=== PATIENT | male | born 1960 | race Hispanic/Latino ===

== ENCOUNTER 2020-08-21 14:25 | Emergency (ER) | payer MEDICAID ==
[2020-08-21] MEDS ORDERED: TETANUS,DIPH,PERTUSS(ACELL) VACCINE 0.5 ML SYRINGE IM ONE (15:01)
--- NOTE | 2020-08-21 15:06 | Emergency Department Report ---
HPI - General Chief Complaint: Altered Mental Status Time Seen by Provider: 08/21/20 15:00 - HPI HPI: Room 17 The patient is a 60-year-old male present with a chief complaint of fall. Patient was reportedly found on the ground after he had fallen and struck his face at a gas station. EMS was called and placed the patient in a cervical collar. Patient has obvious abrasions to the face. Patient denies complaints and states he is ready to go home. The patient states he was at a gas station and noticed that his shoe was untied so he bent over to tie it and that is when he fell ED Past Medical Hx - Past Medical History Hx Hypertension: Yes Hx CVA: Yes Hx Diabetes: Yes Hx HIV: Yes Additional medical history: Stroke in 2013 - Surgical History Additional Surgical History: Toe amputation - Family History Family history: no significant - Social History Smoking Status: Unknown if ever smoked Substance Use Type: None - Medications Home Medications: Home Medications Medication Instructions Recorded Confirmed Last Taken Type Dolutegravir [Tivicay] 50 mg PO DAILY 08/02/19 08/02/19 Unknown History Doxycycline Monohydrate 100 mg PO BID 08/02/19 08/02/19 Unknown History [Doxycycline Monohydrate CAP] Emtricitabine/Tenofov Alafenam 200 mg PO DAILY 08/02/19 08/02/19 Unknown History [Descovy 200-25 mg Tablet] Gabapentin 300 mg PO TID 08/02/19 08/02/19 Unknown History Insulin Detemir [Levemir VIAL] 18 unit SQ QHS 08/02/19 08/02/19 Unknown History Lispro Insulin [HumaLOG] See Protocol SQ AC 08/02/19 08/03/19 Unknown History Losartan [Cozaar] 100 mg PO QDAY 08/02/19 08/02/19 Unknown History Omeprazole 40 mg PO QDAY 08/02/19 08/02/19 Unknown History Rivaroxaban [Xarelto] 20 mg PO QDAY 08/02/19 08/02/19 Unknown History Rosuvastatin Calcium [Crestor] 10 mg PO DAILY 08/02/19 08/03/19 Unknown History Tamsulosin 0.4 cap PO DAILY 08/02/19 08/02/19 Unknown History amLODIPine 10 mg PO DAILY 08/02/19 08/02/19 Unknown History hydroCHLOROthiazide [HCTZ] 25 mg PO DAILY 08/02/19 08/03/19 Unknown History Aspirin 325 mg PO QDAY #30 tablet 08/04/19 Unknown Rx ED Review of Systems ROS: Stated complaint: AMS/FALL Other details as noted in HPI Constitutional: no symptoms reported Eyes: denies: eye pain ENT: denies: throat pain Respiratory: no symptoms reported Cardiovascular: denies: chest pain Endocrine: no symptoms reported Gastrointestinal: denies: abdominal pain Genitourinary: denies: dysuria Musculoskeletal: denies: back pain Skin: other (Facial abrasions) Physical Exam - Physical Exam Vital Signs: Vital Signs 08/21/20 14:32 Temperature 98.8 F Pulse Rate 70 Respiratory 18 Rate Blood Pressure 100/50 Blood Pressure 96/64 [Left] O2 Sat by Pulse 96 Oximetry Vital Signs 08/21/20 08/21/20 08/21/20 14:32 15:00 15:30 Temperature 98.8 F Pulse Rate 70 58 L 67 Respiratory 18 15 14 Rate Blood Pressure 100/50 112/55 107/81 Blood Pressure 96/64 [Left] O2 Sat by Pulse 96 97 99 Oximetry 08/21/20 16:00 Temperature Pulse Rate 76 Respiratory 18 Rate Blood Pressure 107/81 Blood Pressure [Left] O2 Sat by Pulse 95 Oximetry Physical Exam: GENERAL: The patient is well-developed well-nourished male lying on stretcher with obvious abrasions to the face. [] HEENT: Normocephalic. Abrasion/skin tear to the right forehead. Extraocular motions are intact. Patient has moist mucous membranes. NECK: Supple. Cervical collar in place. No cervical step-off CHEST/LUNGS: Clear to auscultation. There is no respiratory distress noted. HEART/CARDIOVASCULAR: Regular. There is no tachycardia. There is no gallop rub or murmur. ABDOMEN: Abdomen is soft, nontender. Patient has normal bowel sounds. There is no abdominal distention. SKIN: There is an abrasion/skin tear to the right forehead. There is no edema. There is no diaphoresis. NEURO: The patient is awake, alert, and oriented. The patient is cooperative. The patient has no focal neurologic deficits. The patient has normal speech. Cranial nerves II through XII grossly intact MUSCULOSKELETAL: There is no evidence of acute injury. ED Course Vital Signs 08/21/20 14:32 Temperature 98.8 F Pulse Rate 70 Respiratory 18 Rate Blood Pressure 100/50 Blood Pressure 96/64 [Left] O2 Sat by Pulse 96 Oximetry ED Medical Decision Making - Lab Data Result diagrams: 08/21/20 14:50 08/21/20 14:50 Laboratory Tests 08/21/20 08/21/20 08/21/20 14:36 14:50 14:50 WBC 5.3 RBC 4.06 Hgb 9.2 L Hct 29.3 L MCV 72 L MCH 23 L MCHC 31 L RDW 17.3 H Plt Count 113 L Lymph % (Auto) 11.4 L [place] % (Auto) 6.5 Eos % (Auto) 1.7 Baso % (Auto) 0.7 Lymph # (Auto) 0.6 L [place] # (Auto) 0.3 Eos # (Auto) 0.1 Baso # (Auto) 0.0 Seg Neutrophils % 79.7 H Seg Neutrophils # 4.2 Sodium 142 Potassium 4.3 Chloride 111.1 H Carbon Dioxide 22 Anion Gap 13 BUN 22 H Creatinine 3.0 H Estimated GFR 21 BUN/Creatinine Ratio 7 Glucose 177 H POC Glucose 55 L Calcium 7.9 L Plasma/Serum Alcohol 08/21/20 14:50 WBC RBC Hgb Hct MCV MCH MCHC RDW Plt Count Lymph % (Auto) [place] % (Auto) Eos % (Auto) Baso % (Auto) Lymph # (Auto) [place] # (Auto) Eos # (Auto) Baso # (Auto) Seg Neutrophils % Seg Neutrophils # Sodium Potassium Chloride Carbon Dioxide Anion Gap BUN Creatinine Estimated GFR BUN/Creatinine Ratio Glucose POC Glucose Calcium Plasma/Serum Alcohol < 0.01 - Radiology Data Radiology results: report reviewed (CT head, CT cervical spine), image reviewed (CT head, CT cervical spine) [facility] [address] [place] [address] Cat Scan Report Signed Patient: KING CUI MR#: [id number] : 1960 Acct:[id number] Age/Sex: 60 / M ADM Date: 08/21/20 Loc: ED Attending Dr: Ordering Physician: BARBARA WRIGHT MD Date of Service: 08/21/20 Procedure(s): CT cervical spine wo con Accession Number(s): [id number] cc: BARBARA WRIGHT MD CT CERVICAL SPINE WITHOUT CONTRAST INDICATION: Head trauma after fall. TECHNIQUE: Axial CT images of the spine were obtained. Sagittal and coronal reformatted images were produced. All CT scans at this location are performed using CT dose reduction for ALARA by means of automated exposure control. COMPARISON: None available. FINDINGS: ACUTE FRACTURE(S) OR SUBLUXATION: None. SPINAL DEGENERATIVE CHANGES: Mild DJD in the atlantodental articulation. Mild bilateral facet DJD throughout the cervical spine. Mild generalized spondylosis with small anterior osteophytes. No appreciable significant spinal canal stenosis. PARASPINAL SOFT TISSUES: No soft tissue swelling or other acute abnormalities. ADDITIONAL FINDINGS: No significant additional findings. IMPRESSION: 1. No acute fracture or subluxation in the spine in neutral position. Signer Name: Prasad Solorzano MD Signed: 08/21/2020 4:59 PM Workstation Name: [id number] Transcribed By: MERY Dictated By: Prasad Solorzano MD Electronically Authenticated By: Prasad Solorzano MD Signed Date/Time: 08/21/201658 DD/ 57 TD/TT: Print [facility] [address] [place] [address] Cat Scan Report Signed Patient: KING CUI MR#: [id number] : 1960 Acct:[id number] Age/Sex: 60 / M ADM Date: 08/21/20 Loc: ED Attending Dr: Ordering Physician: BARBARA WRIGHT MD Date of Service: 08/21/20 Procedure(s): CT head/brain wo con Accession Number(s): [id number] cc: BARBARA WRIGHT MD CT head/brain wo con INDICATION / CLINICAL INFORMATION: 60 years Male; Head trauma after fall. TECHNIQUE: Routine CT head without contrast. All CT scans at this location are performed using CT dose reduction for ALARA by means of automated exposure control. COMPARISON: The study is compared to the previous CT head of 08/02/2019. FINDINGS: BRAIN / INTRACRANIAL CONTENTS: There is extensive cerebral white matter disease most consistent with microvascular angiopathy. There are infarcts involving the roman radiata bilaterally which appear chronic though have developed from the previous CT of 08/02/2019 at. The remaining findings again involve the ganglia capsular regions at. There is an old lacunar infarct involving the left thalamus at. Moderate findings are seen within the winnie. There is milder cerebral atrophy with associated prominence of the ventricular system which appears correlate with the prior study. There is no clear CT evidence of acute intracranial hemorrhage or significant mass effect. ORBITS: No significant abnormality of visualized orbits. SINUSES / MASTOIDS: No significant abnormality in the visualized paranasal sinuses or mastoid air cells. CRANIOCERVICAL JUNCTION: No significant abnormality. ADDITIONAL FINDINGS: None. IMPRESSION: 1. There is extensive microvascular angiopathy as detailed above without clear CT evidence of acute intracranial hemorrhage. Signer Name: Ranjan Bain MD Signed: 08/21/2020 5:02 PM Workstation Name: [id number] Transcribed By: MR Dictated By: Ranjan Bain MD Electronically Authenticated By: Ranjan Bain MD Signed Date/Time: 08/21/201701 DD/ 56 TD/TT: Print Cancel - Medical Decision Making I discussed the patient's labs with him. The patient states his physician told him there is a "problem" with his kidneys and states he has a follow-up appointment later this month. - Differential Diagnosis Close head injury, intracranial hemorrhage, cervical fracture Critical care attestation.: If time is entered above; I have spent that time in minutes in the direct care of this critically ill patient, excluding procedure time. ED Disposition Clinical Impression: Closed head injury, Forehead abrasion, Renal insufficiency Disposition: -01 TO HOME OR SELFCARE Is pt being admited?: No Does the pt Need Aspirin: No Condition: Stable Instructions: Head Injury, Adult, [id number], Abrasion, [id number], Chronic Kidney Disease, Adult Additional Instructions: Return to the emergency department should you develop worsening symptoms, inability to tolerate food or liquids, high fever or any other concerns Referrals: PRIMARY CAREMD [Primary Care Provider] - 3-5 Days Time of Disposition: 17:17
[2020-08-21 15:20] LABS: Basophils % (Auto) 0.7 % (0.0-1.8); Eosinophils # (Auto) 0.1 K/mm3 (0.0-0.4); Eosinophils % (Auto) 1.7 % (0.0-4.3); Hematocrit 29.3 % (35.5-45.6); Hemoglobin 9.2 gm/dl (11.8-15.2); Lymphocytes # (Auto) 0.6 K/mm3 (1.2-5.4); Lymphocytes % (Auto) 11.4 % (13.4-35.0); Mean Corpuscular HGB Conc 31 % (32-34); Mean Corpuscular Volume 72 fl (84-94); Monocytes # (Auto) 0.3 K/mm3 (0.0-0.8); Monocytes % (Auto) 6.5 % (0.0-7.3); Platelet Count 113 K/mm3 (140-440); Red Blood Count 4.06 M/mm3 (3.65-5.03); Red Cell Distribution Width 17.3 % (13.2-15.2)
[2020-08-21 16:14] LABS: Calcium 7.9 mg/dL (8.4-10.2)
[2020-08-21] MEDS ORDERED: SODIUM CHLORIDE 0.9% 1000 ML 1,000 ML IV ONE (16:22)
--- NOTE | 2020-08-21 17:03 | Cat Scan Report ---
CT CERVICAL SPINE WITHOUT CONTRAST INDICATION: Head trauma after fall. TECHNIQUE: Axial CT images of the spine were obtained. Sagittal and coronal reformatted images were produced. Al l CT scans at this location are performed using CT dose reduction for ALARA by means of automated exp osure control. COMPARISON: None available. FINDINGS: ACUTE FRACTURE(S) OR SUBLUXATION: None. SPINAL DEGENERATIVE CHANGES: Mild DJD in the atlantodental articulation. Mild bilateral facet DJD thr oughout the cervical spine. Mild generalized spondylosis with small anterior osteophytes. No apprecia ble significant spinal canal stenosis. PARASPINAL SOFT TISSUES: No soft tissue swelling or other acute abnormalities. ADDITIONAL FINDINGS: No significant additional findings. IMPRESSION: 1. No acute fracture or subluxation in the spine in neutral position. Signer Name: Prasad Solorzano MD Signed: 08/21/2020 4:59 PM Workstation Name: [id number]
--- NOTE | 2020-08-21 17:06 | Cat Scan Report ---
CT head/brain wo con INDICATION / CLINICAL INFORMATION: 60 years Male; Head trauma after fall. TECHNIQUE: Routine CT head without contrast. All CT scans at this location are performed using CT dos e reduction for ALARA by means of automated exposure control. COMPARISON: The study is compared to the previous CT head of 08/02/2019. FINDINGS: BRAIN / INTRACRANIAL CONTENTS: There is extensive cerebral white matter disease most consistent with microvascular angiopathy. There are infarcts involving the roman radiata bilaterally which appear ch ronic though have developed from the previous CT of 08/02/2019 at. The remaining findings again involv e the ganglia capsular regions at. There is an old lacunar infarct involving the left thalamus at. Mo derate findings are seen within the winnie. There is milder cerebral atrophy with associated prominence of the ventricular system which appears c orrelate with the prior study. There is no clear CT evidence of acute intracranial hemorrhage or sign ificant mass effect. ORBITS: No significant abnormality of visualized orbits. SINUSES / MASTOIDS: No significant abnormality in the visualized paranasal sinuses or mastoid air [place]. CRANIOCERVICAL JUNCTION: No significant abnormality. ADDITIONAL FINDINGS: None. IMPRESSION: 1. There is extensive microvascular angiopathy as detailed above without clear CT evidence of acute i ntracranial hemorrhage. Signer Name: Ranjan Bain MD Signed: 08/21/2020 5:02 PM Workstation Name: [id number]
[2020-08-21 17:08] VITALS: BP 107/81
== END 2020-08-21 17:00 | disposition home or self-care (01) ==
LOC: ED 14:25
DX: S09.90XA Unspecified injury of head, initial encounter (principal); N28.9 Disorder of kidney and ureter, unspecified; I10 Essential (primary) hypertension; E11.9 Type 2 diabetes mellitus without complications; Z98.890 Other specified postprocedural states; Z79.899 Other long term (current) drug therapy; Z86.73 Personal history of transient ischemic attack (TIA), and cerebral infarction without residual deficits; Z21 Asymptomatic human immunodeficiency virus [HIV] infection status; Z88.8 Allergy status to other drugs, medicaments and biological substances; W19.XXXA Unspecified fall, initial encounter; Y93.89 Activity, other specified; Y92.89 Other specified places as the place of occurrence of the external cause; Y99.8 Other external cause status
CPT/HCPCS: 36415; 70450; 72125; 80048; 82962; 85025; 90471; 90715; 96360; 99284; J7030; 80320; G0480